=== PATIENT | male | born 1960 | race Two or more races ===

== ENCOUNTER → 2024-07-26 | Outpatient (CLI) | payer MEDICARE, MEDICAID, SELFPAY ==
--- NOTE | 2024-07-26 | XR_ITS ---
Examination: Knee bilateral, 4 views Technique: Knee AP, lateral, each knee total 4 views Date and time of exam: July 26, 2024 1149 hours INDICATIONS: Bilateral knee pain beginning one year ago. 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
== END | disposition home or self-care (01) ==
PROVIDERS: PCP Physician Assistant; Referring Provider Physician Assistant; Visit Provider Physician Assistant
DX: M17.0 Bilateral primary osteoarthritis of knee (principal)
CPT/HCPCS: 73560